=== PATIENT | male | born 1975 | race Caucasian/White ===

== ENCOUNTER 2022-12-29 16:04 | Emergency (ER) | payer SELFPAY ==
[2022-12-29] VITALS (10 sets, daily range): BP systolic 146; BP diastolic 84; PULSE 63–85; RESP 13–28; TEMP 36.8; O2SAT 97; BMI 21.1
--- NOTE | 2022-12-29 16:35 | PC.NURSE ---
Pt has what he believes is a chunk of Joseline stuck in throat. States he drank it this AM and did not realize there was a chunk that was not ground up in his drink. Pt states has tried multiple different thing to help clear it with no relief. Pt has had this happen in the past but has had it clear with no surgery. Pt states he tried coke and vodka and tried to make himself throw up with no relief. No resp distress noted. Pt has been unable to eat or drink since it happened this AM and states he cannot swallow his saliva. Pt has been spitting since this AM as he cannot swallow saliva.
--- NOTE | 2022-12-29 16:36 | XR_ITS ---
The [address] [address] Patient Name: JOCELYN BOSTON MRN: [id number] date: 1975 Sex: M Assigned Patient Location: ER Current Patient Location: ER Accession/Order Number: [id number] Exam Date: 12/29/2022 16:45 Report Date: 12/29/2022 17:21 At the request of: FELECIA MCGRATH Procedure: XR chest 2V EXAM: XR chest 2V HISTORY: esophageal foreign body COMPARISON: None. TECHNIQUE: 2 views of the chest FINDINGS: Heart size normal. No focal consolidation, pleural effusion, pulmonary congestion or pneumothorax. No visualized radiopaque foreign body. XR/XR chest 2V IMPRESSION: No visualized radiopaque foreign body. Electronically authenticated by: CHARLI GARCIA Date: 12/29/2022 17:21
--- NOTE | 2022-12-29 16:39 | ED_ITS ---
Documented by User: HODAN Barkley 12/29/22 18:10 HPI - General Adult General Chief complaint: Dental/Oral Stated complaint: SOMETHING STUCK IN THROAT Time Seen by Provider: 12/29/22 16:33 Source: patient Mode of arrival: walk-in Limitations: no limitations History of Present Illness HPI narrative: patient is a 47-year-old male presents to the Emergency Room for evaluation of foreign body stuck in his esophagus. Patient is visiting here from [place], states he has had this happpen to him several times in the past, patient states over the course of a month to get stuck with eating approximate 1-2 times. he denies any difficulty breathing, denies chest pain or shortness of breath. Patient spitting clear saliva into a cup. Patient states 15-20 years ago he had similar episode with a device going through his nose to pass the food bolus, patient appears in no distress at bedside. But I'm starting to get thirsty as I haven't drank anything all day. Relieving factors: Reports none Exacerbating factors: Reports none Related Data Home Medications Medication Instructions Recorded Confirmed No Known Home Medications 12/29/22 12/29/22 Allergies Allergy/AdvReac Type Severity Reaction Status Date / Time No Known Drug Allergies Allergy Verified 12/29/22 16:28 Review of Systems ROS Constitutional Denies: fever or chills Eyes Denies: change in vision Ears, nose, mouth, and throat Reports: throat pain (food bolus sensation); Denies: dry mouth Cardiovascular Denies: chest pain or palpitations Respiratory Denies: shortness of breath or cough Gastrointestinal Reports: difficulty swallowing; Denies: abdominal pain, nausea, vomiting or excessive passing of gas Musculoskeletal Denies: back pain or neck pain Integumentary/Breast Denies: rash Neurological Denies: headache Psychiatric Denies: anxiety Endocrine Denies: excessive urination Exam Narrative Exam Narrative: Nurses notes and vital signs reviewed and patient is not hypoxic. General: The patient appears well and in no apparent distress. Patient is resting comfortably on cart. Skin: Warm, dry, no pallor noted. Head: Normocephalic, atraumatic Neck: Supple, trachea mid-line, no tenderness, no lymphadenopathy Eye: Pupils are equal, round and reactive to light, EOMI Ears, Nose, Mouth, and Throat: TM are clear, normal light reflex, oral mucosa is moist, no posterior oropharynx erythema or hypertrophy, uvula is mid-line, patient speaks with clear voice, spitting clear secretions into a bedside cup. Cardiovascular: Regular Rate and Rhythm Respiratory: Patient is in no distress, no accessory muscle use, lungs are clear to auscultation, no wheezing, rales or rhonchi. Chest Wall: no tenderness Back: non-tender, no CVA tenderness Musculoskeletal: normal ROM, no tenderness, no swelling GI: Normal bowel sounds, no tenderness to palpation, no masses appreciated. No rebound, guarding, or rigidity noted. Neurological: A&O x4 Psychiatric: Cooperative Constitutional Vital Signs, click to edit/add: Last Vital Signs Temp 98.2 F 12/29/22 16:24 Pulse 66 12/29/22 18:10 Resp 19 12/29/22 18:10 BP 146/84 H 12/29/22 16:24 Pulse Ox 97 12/29/22 16:24 O2 Del Method Room Air 12/29/22 16:24 Course Vital Signs Vital signs: Vital Signs Temperature 98.2 F 12/29/22 16:24 Pulse Rate 76 12/29/22 16:24 Respiratory Rate 18 12/29/22 16:24 Blood Pressure 146/84 H 12/29/22 16:24 Pulse Oximetry 97 12/29/22 16:24 Oxygen Delivery Method Room Air 12/29/22 16:24 Temperature 98.2 F 12/29/22 16:24 Pulse Rate 66 12/29/22 18:10 Respiratory Rate 19 12/29/22 18:10 Blood Pressure 146/84 H 12/29/22 16:24 Pulse Oximetry 97 12/29/22 16:24 Oxygen Delivery Method Room Air 12/29/22 16:24 Medical Decision Making MDM Narrative Medical decision making narrative: patient presents with long-standing history likely esophageal stricture, notes food gets stuckk fairly often which she can eventually pass on his own. Patient was drinking a health drink with undissolved erma when a piece of the erma got stuck in his throat. This occurred at 9 AM this morning. Patient is spitting in a cup, but speaking in a clear voice, case discussed with Dr. Aggarwal on-call general surgeon regarding patient's history and presentation.. Food bolus stuck since 9 am , Dr. Aggarwal advised he would like him to try glucagon and Reglan 1st to see if it passes. Patient has done this in the past with success back home one occasion. Patient made aware and agreeable with treatment plan. patient was observed for approximately one hour after medication was administered, with no improvement in symptoms Dr. Aggarwal was paged again. spoke with Dr. Aggarwal at 6 PM, agreeable to take patient to surgery for further evaluation of patients symptoms Lab Data Lab results reviewed: Yes I reviewed the patient's lab results Labs: Lab Results 12/29/22 Range/Units 16:46 WBC 9.4 (4.0-11.0) 10^3/uL RBC 5.37 (4.70-6.10) 10^6/uL Hgb 15.4 (14.0-18.0) g/dL Hct 45.1 (42.0-54.0) % MCV 84.0 (80.0-94.0) fL MCH 28.7 (25.9-34.0) pg MCHC 34.1 (29.9-35.2) g/dL RDW 13.2 (11.0-15.0) % Plt Count 297 (150-450) 10^3/uL MPV 9.7 (9.5-13.5) fL Neut % (Auto) 74.1 (43.0-75.0) % Lymph % (Auto) 13.7 L (20.5-60.0) % [place] % (Auto) 4.7 (1.7-12.0) % Eos % (Auto) 6.0 (0.9-7.0) % Baso % (Auto) 1.3 (0.2-2.0) % Neut # (Auto) 7.0 H (1.4-6.5) 10^3/uL Lymph # (Auto) 1.3 (1.2-3.8) 10^3/uL [place] # (Auto) 0.4 (0.3-0.8) 10^3/uL Eos # (Auto) 0.6 (0.0-0.7) 10^3/uL Baso # (Auto) 0.1 (0.0-0.1) 10^3/uL Abs Immat Gran (auto) 0.02 (0.00-0.03) 10^3/uL Imm/Tot Granulo (auto) 0.2 (0.0-0.5) % Sodium 143 (136-145) mmol/L Potassium 3.7 (3.5-5.1) mmol/L Chloride 108 H (98-107) mmol/L Carbon Dioxide 25.4 (21.0-32.0) mmol/L Anion Gap 13.3 BUN 16.0 (7.0-18.0) mg/dL Creatinine 0.87 (0.70-1.30) mg/dL Est GFR ( Amer) >60 (>=60) Est GFR (Non-Af Amer) >60 (>=60) BUN/Creatinine Ratio 18.4 Glucose 103 (74-106) mg/dL Calcium 9.1 (8.5-10.1) mg/dL Imaging Data Chest x-ray: My impression: neg chest, no mass, no pneumo Radiologist's impression: At the request of: FELECIA MCGRATH Procedure: XR chest 2V EXAM: XR chest 2V HISTORY: esophageal foreign body COMPARISON: None. TECHNIQUE: 2 views of the chest FINDINGS: Heart size normal. No focal consolidation, pleural effusion, pulmonary congestion or pneumothorax. No visualized radiopaque foreign body. IMPRESSION: No visualized radiopaque foreign body. Electronically authenticated by: CHARLI GARCIA Date: 12/29/2022 17:21 ECG Data Attestation: I personally reviewed and interpreted this ECG as follows: (EKG interpretation: Emergency Department physician interpretation, normal sinus rhythm 69bpm, no ectopy, no ST segment elevation, normal axis. ) Discharge Plan Discharge Patient Disposition: Still a Patient Documented by User: Lilian Villalta MD 12/29/22 18:31 HPI - General Adult General Chief complaint: Dental/Oral Stated complaint: SOMETHING STUCK IN THROAT Time Seen by Provider: 12/29/22 16:33 Related Data Home Medications Medication Instructions Recorded Confirmed No Known Home Medications 12/29/22 12/29/22 Allergies Allergy/AdvReac Type Severity Reaction Status Date / Time No Known Drug Allergies Allergy Verified 12/29/22 16:28 Exam Constitutional Vital Signs, click to edit/add: Last Vital Signs Temp 98.2 F 12/29/22 16:24 Pulse 66 12/29/22 18:10 Resp 19 12/29/22 18:10 BP 146/84 H 12/29/22 16:24 Pulse Ox 97 12/29/22 16:24 O2 Del Method Room Air 12/29/22 16:24 Course Vital Signs Vital signs: Vital Signs Temperature 98.2 F 12/29/22 16:24 Pulse Rate 76 12/29/22 16:24 Respiratory Rate 18 12/29/22 16:24 Blood Pressure 146/84 H 12/29/22 16:24 Pulse Oximetry 97 12/29/22 16:24 Oxygen Delivery Method Room Air 12/29/22 16:24 Temperature 98.2 F 12/29/22 16:24 Pulse Rate 66 12/29/22 18:10 Respiratory Rate 19 12/29/22 18:10 Blood Pressure 146/84 H 12/29/22 16:24 Pulse Oximetry 97 12/29/22 16:24 Oxygen Delivery Method Room Air 12/29/22 16:24 Medical Decision Making MDM Narrative Medical decision making narrative: patient presents with long-standing history likely esophageal stricture, notes food gets stuckk fairly often which she can eventually pass on his own. Patient was drinking a health drink with undissolved erma when a piece of the erma got stuck in his throat. This occurred at 9 AM this morning. Patient is spitting in a cup, but speaking in a clear voice, case discussed with Dr. Aggarwal on-call general surgeon regarding patient's history and presentation.. Food bolus stuck since 9 am , Dr. Aggarwal advised he would like him to try glucagon and Reglan 1st to see if it passes. Patient has done this in the past with success back home one occasion. Patient made aware and agreeable with treatment plan. patient was observed for approximately one hour after medication was administered, with no improvement in symptoms Dr. Aggarwal was paged again. spoke with Dr. Aggarwal at 6 PM, agreeable to take patient to surgery for further evaluation of patients symptoms Attending physician attestation. I have reviewed the mid-level documentation, agree with the documentation, medical decision making and treatment plan as outlined by the mid-level provider. Lab Data Labs: Lab Results 12/29/22 Range/Units 16:46 WBC 9.4 (4.0-11.0) 10^3/uL RBC 5.37 (4.70-6.10) 10^6/uL Hgb 15.4 (14.0-18.0) g/dL Hct 45.1 (42.0-54.0) % MCV 84.0 (80.0-94.0) fL MCH 28.7 (25.9-34.0) pg MCHC 34.1 (29.9-35.2) g/dL RDW 13.2 (11.0-15.0) % Plt Count 297 (150-450) 10^3/uL MPV 9.7 (9.5-13.5) fL Neut % (Auto) 74.1 (43.0-75.0) % Lymph % (Auto) 13.7 L (20.5-60.0) % [place] % (Auto) 4.7 (1.7-12.0) % Eos % (Auto) 6.0 (0.9-7.0) % Baso % (Auto) 1.3 (0.2-2.0) % Neut # (Auto) 7.0 H (1.4-6.5) 10^3/uL Lymph # (Auto) 1.3 (1.2-3.8) 10^3/uL [place] # (Auto) 0.4 (0.3-0.8) 10^3/uL Eos # (Auto) 0.6 (0.0-0.7) 10^3/uL Baso # (Auto) 0.1 (0.0-0.1) 10^3/uL Abs Immat Gran (auto) 0.02 (0.00-0.03) 10^3/uL Imm/Tot Granulo (auto) 0.2 (0.0-0.5) % Sodium 143 (136-145) mmol/L Potassium 3.7 (3.5-5.1) mmol/L Chloride 108 H (98-107) mmol/L Carbon Dioxide 25.4 (21.0-32.0) mmol/L Anion Gap 13.3 BUN 16.0 (7.0-18.0) mg/dL Creatinine 0.87 (0.70-1.30) mg/dL Est GFR ( Amer) >60 (>=60) Est GFR (Non-Af Amer) >60 (>=60) BUN/Creatinine Ratio 18.4 Glucose 103 (74-106) mg/dL Calcium 9.1 (8.5-10.1) mg/dL Discharge Plan Discharge Patient Disposition: Still a Patient
--- NOTE | 2022-12-29 16:43 | ECG_ITS ---
[facility] Test Date: 2022-12-29 Pat Name: JOCELYN BOSTON Department: Room: - Gender: Male [employer]: : 1975 Requested By: Order Number: [id number] Reading MD: THALIA CORBETT Measurements Intervals [place] Rate: 69 P: 78 UT: 172 QRS: 82 QRSD: 82 T: 64 QT: 382 QTc: 401 Interpretive Statements 1100 Sinus rhythm 6120 Possible right atrial enlargement 9130 borderline ECG No previous ECG available for comparison Electronically Signed On 12-30-2022 6:58:43 EDT by THALIA CORBETT
[2022-12-29 17:06] LABS: Basophils Absolute Auto 0.1 10^3/uL (0.0-0.1); Basophils Percent Auto 1.3 % (0.2-2.0); Eosinophils Absolute Auto 0.6 10^3/uL (0.0-0.7); Hematocrit 45.1 % (42.0-54.0); Hemoglobin 15.4 g/dL (14.0-18.0); Immature Granulocytes Abs Auto 0.02 10^3/uL (0.00-0.03); Immature Granulocytes Pct Auto 0.2 % (0.0-0.5); Lymphocytes Absolute Auto 1.3 10^3/uL (1.2-3.8); Lymphocytes Percent Auto 13.7 % (20.5-60.0); Mean Corpuscular HGB Conc 34.1 g/dL (29.9-35.2); Mean Corpuscular Hemoglobin 28.7 pg (25.9-34.0); Mean Platelet Volume 9.7 fL (9.5-13.5); Monocytes Absolute Auto 0.4 10^3/uL (0.3-0.8); Monocytes Percent Auto 4.7 % (1.7-12.0); Neutrophils Percent Auto 74.1 % (43.0-75.0); Platelet Count 297 10^3/uL (150-450); Red Blood Count 5.37 10^6/uL (4.70-6.10); Red Cell Distribution Width 13.2 % (11.0-15.0); White Blood Count 9.4 10^3/uL (4.0-11.0)
[2022-12-29] MEDS: GLUCAGON 1 MG/ML VIAL IM (17:10)
[2022-12-29] MEDS: METOCLOPRAMIDE HCL 10 MG/2 ML VIAL IVP (17:11)
[2022-12-29] MEDS: 0.9 % SODIUM CHLORIDE 1,000 ML 999 ML IV (17:11)
[2022-12-29] MEDS: LORAZEPAM 2 MG/ML 1 ML VIAL 1 MG IV (17:11)
[2022-12-29 17:15] LABS: Anion Gap 13.3; BUN Creatinine Ratio 18.4; Calcium 9.1 mg/dL (8.5-10.1); Carbon Dioxide 25.4 mmol/L (21.0-32.0); Chloride 108 mmol/L (98-107); Estimated GFR (African America >60 (>=60); Estimated GFR (Non-African Ame >60 (>=60); Glucose 103 mg/dL (74-106); Potassium 3.7 mmol/L (3.5-5.1); Sodium 143 mmol/L (136-145)
--- NOTE | 2022-12-29 17:21 | PC.NURSE ---
PT STATES DRANK LEMON AND FRESH SHANTELLE MIXED WITH WATER THIS MORNING AND NOW THINKS HAS SHANTELLE STUCK IN THROAT.PT HAS H/O FOOD BOLUS
== END 2022-12-29 18:41 | disposition home or self-care (01) ==
LOC: ER 18:35 → OR 18:37 → ER 01-01 15:50
PROVIDERS: Personal Emergency Response Attendant; Emergency Provider Emergency Medicine
DX: T18.128A Food in esophagus causing other injury, initial encounter (principal)
CPT/HCPCS: 36415; 71046; 80048; 85025; 93005; 96372; 96374; 96375; 99285; J1610